=== PATIENT | female | born 1970 | race Caucasian/White ===

== ENCOUNTER 2024-02-10 08:49 | Emergency (ER) | payer OTHER, SELFPAY ==
[2024-02-10 08:53] VITALS: BP 114/88
[2024-02-10 09:04] VITALS: BP 131/70
--- NOTE | 2024-02-10 09:16 | ED.GENMED ---
History of Present Illness
<Elly Phelan PA-C - Last Filed: 02/10/24 17:14>
General
Chief Complaint: Chest Pain
Source: patient
Exam Limitations: none
Time Seen by Provider: 02/10/24 09:02
Nursing documentation reviewed up to this point in time: agreed with
History of Present Illness
History of Present Illness:
Patient is a 53 y.o female presenting to the emergency department with chest discomfort. Patient states that she noticed the pain this morning when she was lying in bed around 7 AM. She describes it as a constant dull pain in her left chest with
intermittent bouts that are more severe, sharp, and worse with breathing. Patient denies any radiation of pain to arm, jaw, back. Patient denies any exertional component to pain. There is an intermittent pleuritic component. Patient denies any
associated shortness of breath, dizziness, nausea, diaphoresis.
Patient has never had symptoms like this prior.
He does have a history of breast cancer�10 years prior.
Family history of heart disease. No known history of blood clots or clotting disorders.
Review of Systems
<Elly Phelan PA-C - Last Filed: 02/10/24 17:14>
Review of Systems
Allergies reviewed?: Yes
All Other Systems: ROS reviewed and negative except as documented in HPI and ROS
Phy Exam
<Elly Phelan PA-C - Last Filed: 02/10/24 17:14>
Physical Exam
Physical Exam:
Vitals: Patient's vital signs are stable. Afebrile
General: Patient is well appearing, no acute distress. Nontoxic-appearing
Skin: Warm and dry, no rashes or lesions
Head: Normocephalic, atraumatic
Eyes: Sclera nonicteric. EOMs intact. No nystagmus.
Throat: Protecting airway
Neck: Normal ROM, no cervical spine tenderness, no meningismus. No JVD
Cardiac: Regular rate and rhythm, no murmurs. Anterior chest wall nontender to palpation
Pulm: Normal respiratory effort, no wheezes, rales, rhonchi heard on exam.
Abdomen: No abdominal tenderness.
Extremities: No evidence of cyanosis or edema. Bilateral lower extremities warm with palpable and equal DP pulses.
Neuro: Grossly intact.
Psychiatric: Normal affect.
Scores
<Elly Phelan PA-C - Last Filed: 02/10/24 17:14>
Heart Score for Chest Pain Patients
STEMI patient?: No
History: Slightly or Non-Suspicious
ECG: Nonspecific Repolarization
Age: >45 - <65 years
Risk Factors: No Risk Factors
Troponin: </= Normal Limit
Heart Score for Chest Pain Patients: 2
Heart Score Risk: 2.5% MACE over next 6 weeks
Course
<Elly Phelan PA-C - Last Filed: 02/10/24 17:14>
Orders/Labs/Results
Orders:
Orders
02/10/24 08:50
Electrocardiogram (*1) Urgent
Reason for Study: Chest Pain
EKG- Treatment ONCE
02/10/24 09:08
Cardiac Monitoring- Treatment ONCE
IV Insert/Care/Rem.- Treatment PRN
02/10/24 09:21
Complete Blood Count/With Diff Urgent
Comprehensive Metabolic Panel Urgent
HCG, Serum Qualitative Screen Urgent
Comment: ADD ON
Troponin I Urgent
02/10/24 09:32
Add On- LAB Urgent
Tests Added?: serum hcg qualitative
02/10/24 10:06
D-Dimer Urgent
02/10/24 11:05
CR Chest - 2 Views Urgent
Comment:
Reason For Exam: left sided chest pain
02/10/24 12:20
Electrocardiogram (*1) Urgent
Reason for Study: Chest Pain
EKG- Treatment ONCE
02/10/24 12:34
Troponin I Urgent
Abnormal Lab Results
02/10/24
09:21
RBC 4.16 L 10^6/uL
(4.20-5.40)
MCH 31.3 H pg
(27.0-31.0)
BUN 18 H mg/dl
(7-17)
Glucose 117 H mg/dl
(70-99)
02/10/24 09:21
02/10/24 09:21
Vital Signs
Initial and Last Documented VS:
Initial Vital Signs
Temp Pulse Resp BP Pulse Ox
98.2 F 96 16 114/88 98
02/10/24 08:53 02/10/24 08:53 02/10/24 08:53 02/10/24 08:53 02/10/24 08:53
Last Documented Vital Signs
Temp Pulse Resp BP Pulse Ox
98.2 F 83 23 132/81 100
02/10/24 08:53 02/10/24 13:32 02/10/24 13:32 02/10/24 13:32 02/10/24 13:00
<Bry Oakes MD - Last Filed: 02/10/24 14:09>
Orders/Labs/Results
Orders:
Orders
02/10/24 08:50
Electrocardiogram (*1) Urgent
Reason for Study: Chest Pain
EKG- Treatment ONCE
02/10/24 09:08
Cardiac Monitoring- Treatment ONCE
IV Insert/Care/Rem.- Treatment PRN
02/10/24 09:21
Complete Blood Count/With Diff Urgent
Comprehensive Metabolic Panel Urgent
HCG, Serum Qualitative Screen Urgent
Comment: ADD ON
Troponin I Urgent
02/10/24 09:32
Add On- LAB Urgent
Tests Added?: serum hcg qualitative
02/10/24 10:06
D-Dimer Urgent
02/10/24 11:05
CR Chest - 2 Views Urgent
Comment:
Reason For Exam: left sided chest pain
02/10/24 12:20
Electrocardiogram (*1) Urgent
Reason for Study: Chest Pain
EKG- Treatment ONCE
02/10/24 12:34
Troponin I Urgent
Abnormal Lab Results
02/10/24
09:21
RBC 4.16 L 10^6/uL
(4.20-5.40)
MCH 31.3 H pg
(27.0-31.0)
BUN 18 H mg/dl
(7-17)
Glucose 117 H mg/dl
(70-99)
02/10/24 09:21
02/10/24 09:21
Vital Signs
Initial and Last Documented VS:
Initial Vital Signs
Temp Pulse Resp BP Pulse Ox
98.2 F 96 16 114/88 98
02/10/24 08:53 02/10/24 08:53 02/10/24 08:53 02/10/24 08:53 02/10/24 08:53
Last Documented Vital Signs
Temp Pulse Resp BP Pulse Ox
98.2 F 83 23 132/81 100
02/10/24 08:53 02/10/24 13:32 02/10/24 13:32 02/10/24 13:32 02/10/24 13:00
<Elly Phelan PA-C - Last Filed: 02/10/24 17:14>
MDM/Problems Addressed
Differential Diagnosis Includes:
Not limited to: Muscle strain, pericarditis, myocarditis, ACS, PE, pneumothorax, pleural effusion, pneumonia
MDM/Problems Addressed:
53-year-old female presenting with left-sided chest discomfort initially noticed this morning while lying in bed. Some intermittent pleuritic component, although no exertional component to pain. No cardiac history. Vital stable. Patient
afebrile. Physical exam as above. Patient very well-appearing, conversational and nontoxic. Heart regular rate and rhythm. Lungs clear bilaterally. Bilateral lower extremities without any evidence of cyanosis, edema. Great distal pulses equal
and palpable bilaterally. Patient is perfusing well. Differential broad this time although includes muscle strain, pericarditis, ACS, pleural effusion/pneumonia. Somewhat lower suspicion for infectious etiology given patient is afebrile with no
history of other infectious symptoms. Given pleuritic evidence of pain and patient's remote history of cancer�will rule out pulmonary embolism. Initial EKG obtained in triage nonischemic. Will check labs, troponin, dimer. Plan for us chest x-ray
versus CTA chest following D-dimer result.
Chronic conditions affecting care:
History of breast cancer
Acute Exacerbation and/or Progression of Chronic Illness:
N/A
<Elly Phelan PA-C - Last Filed: 02/10/24 17:14>
*Radiology
Radiology exam reviewed: preliminary read by ED provider and radiology read reviewed
*Pulse Oximetry
Patient hypoxic: no
*EKG
Interpreted by ED Provider?: Yes
EKG Intrepretation Date: 02/10/24
Interpretation: normal
Heart Rate: 93
Rate: normal
Rhythm: sinus
[place]: normal axis
QRS Pattern: normal QRS
Ischemia: non-specific ST changes
*Electrical Design Technologist Interpretation
Rate: normal
Interpretation: normal
Heart Rate: 82
Rhythm: sinus
*Critical Care Note
Total Time (30-74mins, 75-104mins- exclusive of procedures): Not Applicable
<Elly Phelan PA-C - Last Filed: 02/10/24 17:14>
Update Note
Update Note:
Update 11:08 AM: Into reassess patient at bedside. Patient remains comfortable and very well-appearing. Reports only mild discomfort at this time. Vital signs remained stable. Labs are reviewed. No clinically significant abnormalities.
Fortunately D-dimer was normal. Will proceed with chest x-ray. Initial troponin normal-will repeat and trend.
Update: Chest x-ray without any signs of acute disease. Repeat troponin normal. Patient remains hemodynamically stable and well-appearing. Workup has been negative. Low suspicion for acute emergent pathology at this time. Possibly pleurisy
wrist costochondritis. Patient otherwise stable for discharge with cardiology and primary care follow-up. Patient comfortable this plan. Patient seen with attending physician
ED Attending Note
<Elly Phelan PA-C - Last Filed: 02/10/24 17:14>
-
Portions of this chart may have been created with voice recognition software.� Occasional wrong word or��sound alike� substitutions may have occurred due to the inherent limitations of voice recognition software.
<Bry Oakes MD - Last Filed: 02/10/24 14:09>
ED Attending Note
Patient seen and examined by attending physician: Yes
ED Attending Note:
I have seen and evaluated the patient with a [id number] encounter. I have spoken to the advance practicer provider and involved in the medical history, the physical exam, medical decision making.
Evaluation and management service: agree unless noted differently below.
Results interpretation: agree unless noted differently below.
Focused HPI: 53-year-old female with distant history of breast cancer status post double mastectomy currently in remission x 10 years who presents to the ER for evaluation of chest pain. Patient reports onset of symptoms this morning and they have
been intermittent that she says that they last for a few seconds at a time describes a sharp left-sided pain. Occasionally worse with inspiration, no other triggering or relieving factors noted. She denies any associated shortness of breath.
Denies any nausea, vomiting, diaphoresis. Denies any swelling or pain in the legs. Denies any other complaints.
Physical exam: Vital signs all within normal limits. Awake alert no distress. No cardiac rubs gallops or murmurs. Lungs clear auscultation bilaterally.
Medical Decision Makin-year-old female presents with atypical left-sided chest pain intermittent since this morning around 7 AM. EKG shows no STEMI. Exam as above. Sent labs including CBC, CMP, trend troponins. Check D-dimer. Check chest
x-ray. Reassess after the above.
Labs reviewed: CBC and CMP unremarkable, troponins undetectable x 2. D-dimer negative. Chest x-ray no acute disease. Possibly costochondritis. Low suspicion for emergent pathology at this point, plan to discharge with outpatient cardiology and
PCP follow-up.
Discharge Plan
Departure
Patient Disposition: Home (Routine Discharge)
Date of Disposition: 02/10/24
Time of Disposition: 13:22
Patient with high blood pressure during this ER visit?: No
Condition: Good
Covid-19: Not Applicable
Discharge Problem:
Chest pain
Instructions: Chest Pain
Referrals:
Andreas Ricks MD [Active] - Next open appointment
Tiago Hsieh MD [Family Provider] - Follow up in 2-3 days
Activity Restrictions/Additional Instructions:
RETURN TO THE EMERGENCY DEPARTMENT WITH WORSENING/PERSISTENT CHEST PAIN, ANY SHORTNESS OF BREATH, SEVERE BACK PAIN, COUGHING UP BLOOD, FEVERS, WORSENING IN CURRENT SYMPTOMS, OR ANY OTHER CONCERNS
-You can take Motrin/Tylenol as needed for any discomfort. Stay well-hydrated. Stay well rested and take it easy over the next few days.
-Follow-up with your primary care provider in a few days to ensure that symptoms are improving. You should keep your appointment tomorrow morning for ultrasound. Try to reschedule your urology appointment, as well.
-You can schedule to assistant county attorney for further cardiac evaluation given family history
Monitor symptoms closely return to the emergency department with any acute worsening/new symptoms
Interventions
Interventions:
*Risk Screen - Suicide Last Done: 02/10/24 08:53
*General Assessment Last Done: 02/10/24 09:33
*Neglect/Abuse Screening Last Done: 02/10/24 08:53
ED- Fall Risk Assessment Last Done: 02/10/24 10:05
*ED COVID-19 Vaccine History Last Done: 02/10/24 09:33
*Nursing Disposition Last Done: 02/10/24 13:50
ED- Cardiac Assessment Last Done: 02/10/24 10:05
Discharge Date and Time
Discharge Date/Time: 02/10/24 13:50
Print Language: ALBANIAN
[2024-02-10 09:27] LABS: % Basophils 0.4 % (0-2); % Eosinophils 2.4 % (0-6); % Immature Granulocytes 0.4 % (0-0.5); % Lymphocytes 25.1 % (20.5-51.1); % Monocytes 5.4 % (1.7-9.3); % Neutrophils 66.3 % (42.2-75.2); Absolute Eosinophils 0.1 10^3/uL (0-0.7); Absolute Lymphocytes 1.4 10^3/uL (1.2-3.4); Absolute Monocytes 0.3 10^3/uL (0.1-0.6); Absolute Neutrophils 3.6 10^3/uL (1.4-6.5); Hematocrit 37.4 % (37.0-47.0); Mean Corp Hgb Conc. 34.8 g/dL (33.0-37.0); Mean Corpuscular Hgb 31.3 pg (27.0-31.0); Mean Corpuscular Volume 89.9 fL (81.0-99.0); Mean Platelet Volume 10.3 fL (7.4-10.4); Nucleated Red Blood Cells % 0 %; Platelet Count 170 10^3/uL (130-400); Red Blood Cell Count 4.16 10^6/uL (4.20-5.40); Red Cell Dist. Width 11.5 % (11.5-14.5); White Blood Cell Count 5.4 10^3/uL (4.8-10.8)
[2024-02-10 09:33] VITALS: BMI 24.9
[2024-02-10 09:43] LABS: ALT (SGPT) 13 U/L (0-35); AST (SGOT) 24 U/L (14-36); Albumin 4.2 g/dl (3.5-5.0); Alkaline Phosphatase 39 U/L (38-126); Blood Urea Nitrogen 18 mg/dl (7-17); Calcium 9.2 mg/dl (8.4-10.2); Carbon Dioxide 25 mmol/L (22-30); Chloride 106 mmol/L (98-107); Estimated Creatinine Clearance 88 ml/min; Glucose 117 mg/dl (70-99); Potassium 4.2 mmol/L (3.5-5.1); Sodium 140 mmol/L (135-145); Total Bilirubin 0.6 mg/dl (0.2-1.3); Total Protein 6.5 g/dl (6.3-8.2); eGFR > 60.00
[2024-02-10 09:56] LABS: Troponin I < 0.012 ng/ml
[2024-02-10 10:05] VITALS: BP 131/79
--- NOTE | 2024-02-10 10:10 | EDRN ---
D. Dimer drawn and sent at this time.
[2024-02-10 10:19] LABS: HCG, Serum Qualitative Screen Negative
[2024-02-10 10:48] LABS: D-Dimer 0.46 ug/mlFEU (0.00-0.50)
[2024-02-10 11:00] VITALS: BP 126/83
[2024-02-10 12:00] VITALS: BP 121/89
[2024-02-10 13:13] LABS: Troponin I < 0.012 ng/ml
[2024-02-10 13:32] VITALS: BP 132/81
== END 2024-02-10 13:50 | disposition home or self-care (01) ==
LOC: EMR 08:49
PROVIDERS: Physician Assistant; EMERGENCY PHYSICIAN Emergency Medicine; FAMILY PHYSICIAN Family Medicine
DX: R07.89 Other chest pain (principal); Z85.3 Personal history of malignant neoplasm of breast; Z90.13 Acquired absence of bilateral breasts and nipples
CPT/HCPCS: 99285; 71046; 80053; 84484; 84703; 85025; 85379; 93005